=== PATIENT | male | born 1985 | race American Indian/Alaskan Native ===

== ENCOUNTER 2019-06-13 09:39 | Emergency (ER) | payer SELFPAY ==
[2019-06-13 09:53] VITALS: BP 146/97
--- NOTE | 2019-06-13 10:08 | Emergency Department Report ---
ED Rash HPI - HPI Chief Complaint: Dental/Oral Stated Complaint: TONGUE SWOLLEN/BUMP/PAIN Time Seen by Provider: 06/13/19 10:07 Duration: 3 Days Location: Other Suspected Cause: Unknown Rash Symptoms: No Itching, No Facial Swelling, No Tongue/Oral Swelling, No Breathing Difficulties, No Choking Sensation, No Wheezing/Dyspnea, No Peeling, No Blistering, No Fever, No Lightheaded, No Malaise, No Myalgias Severity: mild Other History: 33 yo comes to ER with sores on tip of his tongue and on lower lip, right and left. no fever or chills. has been using peroxide to treat. no history of the same. no trauma. No rash. No genital lesions. His girlfriend does not have lesions. ED Review of Systems ROS: Stated complaint: TONGUE SWOLLEN/BUMP/PAIN Other details as noted in HPI Comment: All other systems reviewed and negative ED Past Medical Hx - Past Medical History Previous Medical History?: No - Surgical History Past Surgical History?: No - Family History Family history: no significant - Social History Smoking Status: Never Smoker Substance Use Type: None - Medications Home Medications: Home Medications Medication Instructions Recorded Confirmed Last Taken Type Nystatin [Nystatin SUSP] 5 ml PO QID #150 ml 06/13/19 Unknown Rx Rash Exam - Exam General: Vital signs noted. No distress. Alert and acting appropriately. HEENT: No Periorbital Edema, No Conjuctival Injection, No Chemosis, No Perioral Edema, No Tongue Edema, No Uvular Edema, No Compromised Airway, No Drooling Lungs: Yes Good Air Exchange, No Wheezes, No Ronchi, No Stridor, No Cough, No Labored Respirations, No Retractions Heart: Yes Regular, No Murmur Skin: Yes Tenderness, Yes Erythema, Yes Other (lesions on tip of tongue and right and left lower lip. did not start as a tingling or pain. They just came up slowly starting in his mouth then on his tongue. no one in home has the same. no eye lesions. no systemic illness. ), No Urticarial Rash, No Maculopapular Rash, No Morbilliform rash, No Bulla(e), No Excoriations, No Weeping, No Edema, No Encrustations Other: Positive: Abdomen Normal, Neurologic Normal, Musculoskeletal Normal ED Course Vital Signs 06/13/19 09:51 Temperature 99.7 F H Pulse Rate 99 H Respiratory 16 Rate Blood Pressure 146/97 [Left] O2 Sat by Pulse 96 Oximetry ED Medical Decision Making - Medical Decision Making lesions are bilateral pt has no hx herpes he denies fevers or chills the lesions are not herpetic appearing they are more like canker sores pt educated on not using peroxide; that it destroys healing tissue. medicated in ER Dc home with PCP follow up Vital Signs 06/13/19 09:51 Temperature 99.7 F H Pulse Rate 99 H Respiratory 16 Rate Blood Pressure 146/97 [Left] O2 Sat by Pulse 96 Oximetry - Differential Diagnosis stomatitis- herpes Critical care attestation.: If time is entered above; I have spent that time in minutes in the direct care of this critically ill patient, excluding procedure time. ED Disposition Clinical Impression: Stomatitis Disposition: DC-01 TO HOME OR SELFCARE Is pt being admited?: No Does the pt Need Aspirin: No Condition: Stable Instructions: Canker Sores (ED) Additional Instructions: MEDS ORDERED TODAY NO MORE PEROXIDE FOLLOW UP WITH PCP IF PERSIST REFERRAL BELOW THIS IS NOT HERPES Prescriptions: Nystatin [Nystatin SUSP] 5 ml PO QID #150 ml Referrals: RICK BYERS MD [Primary Care Provider] - 3-5 Days Time of Disposition: 10:31
[2019-06-13] MEDS ORDERED: predniSONE 20 MG TAB PO ONE (10:32)
[2019-06-13] MEDS ORDERED: IBUPROFEN 800 MG TAB PO ONE (10:33)
[2019-06-13] MEDS ORDERED: ACYCLOVIR 800 MG TAB PO ONE (11:00)
== END 2019-06-13 10:51 | disposition home or self-care (01) ==
LOC: ED 09:39
DX: K12.1 Other forms of stomatitis (principal)
CPT/HCPCS: 99282; J7512